=== PATIENT | female | born 1945 | race Native Hawaiian/Other Pacific Islander ===

== ENCOUNTER 2016-04-22 12:58 | Outpatient (CLI) | payer OTHER ==
[~2016-04-22 12:58] MED LIST: FURO40TA93 PO; GABA300C2 PO; HYDR10TA47A PO; HYSINGLA PO; LABETALOL200 MG OR; LORTAB 10-325 M1 TAB PO; MECL25TA84 PO; MECLIZINE25 M1 OR; PREDNISONE5 M1 OR; PRINIVIL10 MG OR; TOVIAZ4 MG OR; TRIA37.541 PO; XANAX2 MG OR
== END 2016-04-22 13:22 | disposition short-term general hospital (02) ==
LOC: AMB 12:58
DX: R10.84 Generalized abdominal pain (principal); R53.83 Other fatigue; T40.4X1A Poisoning by other synthetic narcotics, accidental (unintentional), initial encounter; Y92.092 Bedroom in other non-institutional residence as the place of occurrence of the external cause
CPT/HCPCS: A0425; A0427

== ENCOUNTER 2016-09-26 09:53 | Outpatient (CLI) | payer OTHER | END 2016-09-26 11:15 | disposition home or self-care (01) | LOC: MAMMO 09:53 | DX: Z12.31 Encounter for screening mammogram for malignant neoplasm of breast (principal) | CPT/HCPCS: G0202-TC ==

== ENCOUNTER 2016-12-23 09:14 | Emergency (ER) | payer OTHER ==
[~2016-12-23] VITALS: Ht 149.9 cm; Wt 86.2 kg
[2016-12-23 10:58] VITALS: BP 154/94; TEMP 98.8
== END 2016-12-23 11:00 | disposition home or self-care (01) ==
LOC: ED 09:14
DX: S63.592A Other specified sprain of left wrist, initial encounter (principal); W18.39XA Other fall on same level, initial encounter; Y92.89 Other specified places as the place of occurrence of the external cause
CPT/HCPCS: 99282

== ENCOUNTER 2017-01-09 15:45 | Emergency (ER) | payer OTHER ==
[~2017-01-09] VITALS: Ht 149.9 cm; Wt 81.6 kg
[2017-01-09 16:57] VITALS: BP 152/84; TEMP 98.7
== END 2017-01-09 16:59 | disposition home or self-care (01) ==
LOC: ED 15:45
DX: M25.561 Pain in right knee (principal)
CPT/HCPCS: 99283

== ENCOUNTER 2017-04-03 05:06 | Emergency (ER) | payer OTHER ==
[~2017-04-03] VITALS: Ht 121.9 cm; Wt 96.2 kg
[2017-04-03 07:09] VITALS: BP 133/86; TEMP 97.9
== END 2017-04-03 07:10 | disposition home or self-care (01) ==
LOC: ED 05:06
DX: M25.561 Pain in right knee (principal); M25.461 Effusion, right knee; Z98.890 Other specified postprocedural states
CPT/HCPCS: 36415; 85379; 99283

== ENCOUNTER 2017-04-05 12:02 | Outpatient (CLI) | payer OTHER | END 2017-04-05 19:39 | disposition home or self-care (01) | LOC: LAB 12:02 | DX: N95.1 Menopausal and female climacteric states (principal); Z79.899 Other long term (current) drug therapy | CPT/HCPCS: 36415; 84443 ==

== ENCOUNTER 2017-04-12 13:23 | Emergency (ER) | payer OTHER ==
[~2017-04-12] VITALS: Ht 149.9 cm; Wt 77.1 kg
[2017-04-12 14:06] VITALS: BP 144/76; TEMP 98.2
== END 2017-04-12 14:20 | disposition home or self-care (01) ==
LOC: ED 13:23
DX: R11.10 Vomiting, unspecified (principal); R10.13 Epigastric pain
CPT/HCPCS: 99281

== ENCOUNTER 2017-06-25 13:01 | Outpatient (CLI) | payer OTHER ==
[2017-06-25 13:57] LABS: PLATELET COUNT 312 K/uL (152-353)
[2017-06-25 14:04] LABS: POTASSIUM 4.3 mmol/L (3.6-5.2)
[2017-06-25 14:21] LABS: PARTIAL THROMBOPLASTIN TIME 26.5 SECONDS (24.5-33.6)
== END 2017-06-25 20:00 | disposition home or self-care (01) ==
LOC: RESP 13:01 → LABW 13:01
PROVIDERS: Anesthesiology
DX: I10 Essential (primary) hypertension (principal); I34.1 Nonrheumatic mitral (valve) prolapse; Z01.818 Encounter for other preprocedural examination; D46.Z Other myelodysplastic syndromes
CPT/HCPCS: 36415; 80048; 85027; 85610; 85730; 93005

== ENCOUNTER 2017-08-20 08:00 | Outpatient (CLI) | payer OTHER | END 2017-08-20 23:10 | disposition home or self-care (01) | LOC: NM 08:00 | DX: R22.41 Localized swelling, mass and lump, right lower limb (principal); M23.8X1 Other internal derangements of right knee | CPT/HCPCS: A9561 ==

== ENCOUNTER 2017-10-01 13:31 | Outpatient (CLI) | payer OTHER ==
[2017-10-01 13:56] LABS: PLATELET COUNT 306 K/uL (152-353)
[2017-10-01 14:05] LABS: POTASSIUM 5.2 mmol/L (3.6-5.2)
== END 2017-10-01 20:02 | disposition home or self-care (01) ==
LOC: LABW 13:31
PROVIDERS: Nurse Practitioner Family
DX: M06.4 Inflammatory polyarthropathy (principal); M86.8X6 Other osteomyelitis, lower leg; R53.83 Other fatigue
CPT/HCPCS: 36415; 80053; 83970; 85027; 87040; 87077; 87186; 87205

== ENCOUNTER 2017-10-04 13:07 | Outpatient (CLI) | payer OTHER | END 2017-10-04 19:40 | disposition home or self-care (01) | LOC: CT 13:07 | DX: M86.8X6 Other osteomyelitis, lower leg (principal) ==

== ENCOUNTER 2017-10-04 15:12 | Emergency (ER) | payer OTHER ==
[~2017-10-04] VITALS: Ht 149.9 cm; Wt 89.8 kg
[2017-10-04 15:30] VITALS: TEMP 98.6
[2017-10-04 17:15] LABS: PLATELET COUNT 275 K/uL (152-353)
[2017-10-04 17:22] LABS: POTASSIUM 4.3 mmol/L (3.6-5.2)
[2017-10-04 18:46] VITALS: BP 148/72
== END 2017-10-04 18:47 | disposition home or self-care (01) ==
LOC: ED 15:12
PROVIDERS: Emergency Medicine
DX: R78.81 Bacteremia (principal); B96.29 Other Escherichia coli [E. coli] as the cause of diseases classified elsewhere; M86.8X6 Other osteomyelitis, lower leg
CPT/HCPCS: 80048; 85027; 96365; 99283; J1580

== ENCOUNTER 2017-10-05 08:00 | Outpatient (CLI) | payer OTHER | END 2017-10-05 21:10 | disposition home or self-care (01) | LOC: INF 08:00 | DX: A41.51 Sepsis due to Escherichia coli [E. coli] (principal); T78.40XA Allergy, unspecified, initial encounter | CPT/HCPCS: 80170; 96365; 96366; J1580 ==

== ENCOUNTER 2017-10-06 09:00 | Outpatient (CLI) | payer OTHER | END 2017-10-06 21:30 | disposition home or self-care (01) | LOC: INF 09:00 | DX: A41.51 Sepsis due to Escherichia coli [E. coli] (principal); T78.40XA Allergy, unspecified, initial encounter | CPT/HCPCS: 96365; 96366 ==

== ENCOUNTER 2017-10-07 09:10 | Outpatient (CLI) | payer OTHER ==
[~2017-10-07] VITALS: Ht 149.9 cm; Wt 44.5 kg
== END 2017-10-07 19:13 | disposition home or self-care (01) ==
LOC: INF 09:10
DX: A41.51 Sepsis due to Escherichia coli [E. coli] (principal); T78.40XA Allergy, unspecified, initial encounter
CPT/HCPCS: 96365; J1335

== ENCOUNTER 2017-10-08 14:55 | Day surgery (SDC) | payer OTHER ==
[~2017-10-08] VITALS: Ht 149.9 cm; Wt 44.5 kg
[2017-10-08 09:45] VITALS: BP 101/53; TEMP 98.5
== END 2017-10-08 17:36 | disposition home or self-care (01) ==
LOC: OR 14:55
PROC: 05HQ33Z Insertion of Infusion Device into Left External Jugular Vein, Percutaneous Approach (ICD-10-PCS; principal; 2017-10-08)
DX: A41.51 Sepsis due to Escherichia coli [E. coli] (principal); E86.0 Dehydration; Z79.2 Long term (current) use of antibiotics
CPT/HCPCS: 36571; C1751; J1335; J1642

== ENCOUNTER 2017-10-09 09:56 | Outpatient (CLI) | payer OTHER | END 2017-10-09 19:27 | disposition home or self-care (01) | LOC: INF 09:56 | PROVIDERS: Internal Medicine | DX: A41.51 Sepsis due to Escherichia coli [E. coli] (principal) | CPT/HCPCS: 80053; 96365; 96375; J1335 ==

== ENCOUNTER 2017-10-10 07:42 | Outpatient (CLI) | payer OTHER ==
[~2017-10-10] VITALS: Ht 149.9 cm; Wt 89.8 kg
== END 2017-10-10 15:20 | disposition home or self-care (01) ==
LOC: INF 07:42
DX: A41.51 Sepsis due to Escherichia coli [E. coli] (principal)
CPT/HCPCS: 96365; 96375; J1335; J1642

== ENCOUNTER 2017-10-11 09:18 | Outpatient (CLI) | payer OTHER ==
[~2017-10-11] VITALS: Ht 149.9 cm; Wt 89.8 kg
== END 2017-10-11 22:41 | disposition home or self-care (01) ==
LOC: INF 09:18
DX: B96.20 Unspecified Escherichia coli [E. coli] as the cause of diseases classified elsewhere (principal); A41.9 Sepsis, unspecified organism; T78.49XA Other allergy, initial encounter
CPT/HCPCS: 96365; J1335; J1642

== ENCOUNTER 2017-10-12 10:22 | Emergency (ER) | payer OTHER ==
[~2017-10-12] VITALS: Ht 149.9 cm; Wt 89.8 kg
[2017-10-12 13:24] VITALS: BP 110/50; TEMP 98.3
== END 2017-10-12 13:25 | disposition home or self-care (01) ==
LOC: ED 10:22
DX: S00.83XA Contusion of other part of head, initial encounter (principal); R42 Dizziness and giddiness; W19.XXXA Unspecified fall, initial encounter; Y93.9 Activity, unspecified; Y92.091 Bathroom in other non-institutional residence as the place of occurrence of the external cause; B96.20 Unspecified Escherichia coli [E. coli] as the cause of diseases classified elsewhere; A41.51 Sepsis due to Escherichia coli [E. coli]
CPT/HCPCS: 96365; 99283; J1335; J1642

== ENCOUNTER 2017-10-12 12:25 | Outpatient (CLI) | payer OTHER | END 2017-10-12 19:35 | disposition home or self-care (01) | LOC: INF 12:25 | DX: B96.20 Unspecified Escherichia coli [E. coli] as the cause of diseases classified elsewhere (principal); A41.51 Sepsis due to Escherichia coli [E. coli] | CPT/HCPCS: 96365; J1335 ==

== ENCOUNTER 2017-10-13 10:08 | Outpatient (CLI) | payer OTHER | END 2017-10-13 19:13 | disposition home or self-care (01) | LOC: INF 10:08 | DX: B96.20 Unspecified Escherichia coli [E. coli] as the cause of diseases classified elsewhere (principal); A41.51 Sepsis due to Escherichia coli [E. coli] | CPT/HCPCS: 96365; J1335; J1642 ==

== ENCOUNTER 2017-10-14 08:52 | Outpatient (CLI) | payer OTHER ==
[~2017-10-14] VITALS: Ht 149.9 cm; Wt 89.8 kg
[2017-10-14 09:40] VITALS: BP 117/37; TEMP 98.7
[2017-10-14 11:12] LABS: POTASSIUM 4.5 mmol/L (3.6-5.2)
[2017-10-14 11:25] VITALS: BP 116/28; TEMP 98.4
== END 2017-10-14 20:38 | disposition home or self-care (01) ==
LOC: LAB 08:52 → INF 08:52
DX: B96.20 Unspecified Escherichia coli [E. coli] as the cause of diseases classified elsewhere (principal); A41.9 Sepsis, unspecified organism; M06.4 Inflammatory polyarthropathy; M86.8X6 Other osteomyelitis, lower leg
CPT/HCPCS: 36415; 80053; 96365; J1335

== ENCOUNTER 2017-10-15 09:53 | Outpatient (CLI) | payer OTHER ==
[~2017-10-15] VITALS: Ht 149.9 cm; Wt 89.8 kg
[2017-10-15 10:20] VITALS: BP 102/83; TEMP 98.6
[2017-10-15 10:52] VITALS: BP 119/51; TEMP 98.5
== END 2017-10-15 23:49 | disposition home or self-care (01) ==
LOC: LAB 09:53 → INF 09:53
DX: B96.20 Unspecified Escherichia coli [E. coli] as the cause of diseases classified elsewhere (principal); R30.0 Dysuria
CPT/HCPCS: 81000; 96365; J1335

== ENCOUNTER 2017-10-16 09:57 | Outpatient (CLI) | payer OTHER | END 2017-10-16 23:54 | disposition home or self-care (01) | LOC: INF 09:57 | DX: B96.20 Unspecified Escherichia coli [E. coli] as the cause of diseases classified elsewhere (principal) | CPT/HCPCS: 96365; J1335 ==

== ENCOUNTER 2017-10-17 09:13 | Outpatient (CLI) | payer OTHER ==
[~2017-10-17] VITALS: Ht 149.9 cm; Wt 89.8 kg
== END 2017-10-17 19:15 | disposition home or self-care (01) ==
LOC: INF 09:13
DX: B96.20 Unspecified Escherichia coli [E. coli] as the cause of diseases classified elsewhere (principal)
CPT/HCPCS: 96365; J1335

== ENCOUNTER 2017-10-18 08:06 | Outpatient (CLI) | payer OTHER | END 2017-10-18 19:21 | disposition home or self-care (01) | LOC: INF 08:06 | DX: B96.20 Unspecified Escherichia coli [E. coli] as the cause of diseases classified elsewhere (principal) | CPT/HCPCS: 96365; J1335 ==

== ENCOUNTER 2017-10-19 09:49 | Outpatient (CLI) | payer OTHER | END 2017-10-19 19:23 | disposition home or self-care (01) | LOC: INF 09:49 | DX: B96.20 Unspecified Escherichia coli [E. coli] as the cause of diseases classified elsewhere (principal) | CPT/HCPCS: 96365; J1335 ==

== ENCOUNTER 2017-10-20 09:43 | Outpatient (CLI) | payer OTHER | END 2017-10-20 20:10 | disposition home or self-care (01) | LOC: INF 09:43 | DX: B96.20 Unspecified Escherichia coli [E. coli] as the cause of diseases classified elsewhere (principal) | CPT/HCPCS: 96365; J1335 ==

== ENCOUNTER 2017-10-25 14:54 | Outpatient (CLI) | payer OTHER ==
[2017-10-25 15:30] LABS: PLATELET COUNT 310 K/uL (152-353)
[2017-10-25 15:37] LABS: POTASSIUM 4.2 mmol/L (3.6-5.2)
== END 2017-10-25 23:27 | disposition home or self-care (01) ==
LOC: LABW 14:54
PROVIDERS: Internal Medicine Infectious Disease
DX: M86.28 Subacute osteomyelitis, other site (principal)
CPT/HCPCS: 36415; 80053; 82550; 84550; 85027; 85651; 86361

== ENCOUNTER 2017-11-12 15:33 | Outpatient (CLI) | payer OTHER | END 2017-11-12 23:29 | disposition home or self-care (01) | LOC: LABW 15:33 | DX: K11.7 Disturbances of salivary secretion (principal); M86.8X6 Other osteomyelitis, lower leg; R30.0 Dysuria | CPT/HCPCS: 36415; 81000; 85651; 86140; 87040; 87077; 87086; 87088; 87185; 87186 ==

== ENCOUNTER 2017-12-03 12:58 | Outpatient (CLI) | payer OTHER | END 2017-12-03 22:45 | disposition home or self-care (01) | LOC: MAMMO 12:58 | DX: Z12.31 Encounter for screening mammogram for malignant neoplasm of breast (principal) ==

== ENCOUNTER 2017-12-31 09:10 | Outpatient (CLI) | payer OTHER ==
[~2017-12-31] VITALS: Ht 124.5 cm; Wt 95.0 kg
[2017-12-31 09:15] VITALS: BP 158/63; TEMP 98.5
[2017-12-31 12:10] VITALS: BP 178/47; TEMP 98.6
== END 2017-12-31 12:15 | disposition home or self-care (01) ==
LOC: INF 09:10
DX: T84.53XA Infection and inflammatory reaction due to internal right knee prosthesis, initial encounter (principal)
CPT/HCPCS: 96365; 96366; J3370

== ENCOUNTER 2018-01-01 09:52 | Outpatient (CLI) | payer OTHER ==
[~2018-01-01] VITALS: Ht 124.5 cm; Wt 94.8 kg
== END 2018-01-01 19:55 | disposition home or self-care (01) ==
LOC: INF 09:52
DX: T84.53XA Infection and inflammatory reaction due to internal right knee prosthesis, initial encounter (principal)
CPT/HCPCS: 96365; 96366; J3370

== ENCOUNTER 2018-01-02 08:51 | Outpatient (CLI) | payer OTHER ==
[~2018-01-02] VITALS: Ht 149.9 cm; Wt 94.8 kg
== END 2018-01-02 19:30 | disposition home or self-care (01) ==
LOC: INF 08:51
DX: T84.53XA Infection and inflammatory reaction due to internal right knee prosthesis, initial encounter (principal)
CPT/HCPCS: 96365; 96366; J1642; J3370

== ENCOUNTER 2018-01-03 08:13 | Outpatient (CLI) | payer OTHER ==
[~2018-01-03] VITALS: Ht 149.9 cm; Wt 94.8 kg
== END 2018-01-03 19:13 | disposition home or self-care (01) ==
LOC: INF 08:13
DX: T84.53XA Infection and inflammatory reaction due to internal right knee prosthesis, initial encounter (principal)
CPT/HCPCS: 96365; 96366; J1642; J3370

== ENCOUNTER 2018-01-04 09:34 | Outpatient (CLI) | payer OTHER | END 2018-01-04 19:59 | disposition home or self-care (01) | LOC: INF 09:34 | DX: T84.53XA Infection and inflammatory reaction due to internal right knee prosthesis, initial encounter (principal) | CPT/HCPCS: 96365; 96366; 96375 ==

== ENCOUNTER 2018-01-05 09:24 | Outpatient (CLI) | payer OTHER | END 2018-01-05 19:12 | disposition home or self-care (01) | LOC: INF 09:24 | DX: T84.53XA Infection and inflammatory reaction due to internal right knee prosthesis, initial encounter (principal); M86.28 Subacute osteomyelitis, other site | CPT/HCPCS: 96365; 96366; 96375 ==

== ENCOUNTER 2018-01-06 09:43 | Outpatient (CLI) | payer OTHER ==
[~2018-01-06] VITALS: Ht 149.9 cm; Wt 94.8 kg
[2018-01-06 10:34] LABS: POTASSIUM 3.6 mmol/L (3.6-5.2)
[2018-01-06 10:38] LABS: PLATELET COUNT 264 K/uL (152-353)
== END 2018-01-06 19:44 | disposition home or self-care (01) ==
LOC: INF 09:43
PROVIDERS: Internal Medicine Infectious Disease
DX: T84.53XA Infection and inflammatory reaction due to internal right knee prosthesis, initial encounter (principal); M86.28 Subacute osteomyelitis, other site
CPT/HCPCS: 80048; 80202; 85027; 86140; 96365; 96366; 96375; J1642; J3370

== ENCOUNTER 2018-01-07 09:41 | Outpatient (CLI) | payer OTHER ==
[~2018-01-07] VITALS: Ht 149.9 cm; Wt 94.8 kg
== END 2018-01-07 22:23 | disposition home or self-care (01) ==
LOC: INF 09:41
DX: M86.28 Subacute osteomyelitis, other site (principal)
CPT/HCPCS: 96365; 96366; J3370

== ENCOUNTER 2018-01-08 09:36 | Outpatient (CLI) | payer OTHER ==
[~2018-01-08] VITALS: Ht 149.9 cm; Wt 94.8 kg
== END 2018-01-08 19:35 | disposition home or self-care (01) ==
LOC: INF 09:36
DX: T84.53XA Infection and inflammatory reaction due to internal right knee prosthesis, initial encounter (principal); M86.28 Subacute osteomyelitis, other site
CPT/HCPCS: 96365; 96366; J1642; J3370

== ENCOUNTER 2018-01-09 09:33 | Outpatient (CLI) | payer OTHER | END 2018-01-09 19:09 | disposition home or self-care (01) | LOC: INF 09:33 | DX: T84.53XA Infection and inflammatory reaction due to internal right knee prosthesis, initial encounter (principal); M86.28 Subacute osteomyelitis, other site | CPT/HCPCS: 96365; 96366; J3370 ==

== ENCOUNTER 2018-01-10 09:06 | Outpatient (CLI) | payer OTHER | END 2018-01-10 19:08 | disposition home or self-care (01) | LOC: INF 09:06 | DX: T84.53XA Infection and inflammatory reaction due to internal right knee prosthesis, initial encounter (principal); M86.28 Subacute osteomyelitis, other site | CPT/HCPCS: 96365; J3370 ==

== ENCOUNTER 2018-01-11 08:49 | Outpatient (CLI) | payer OTHER ==
[~2018-01-11] VITALS: Ht 30.5 cm; Wt 0.5 kg
== END 2018-01-11 22:17 | disposition home or self-care (01) ==
LOC: INF 08:49
DX: T84.53XA Infection and inflammatory reaction due to internal right knee prosthesis, initial encounter (principal); M86.28 Subacute osteomyelitis, other site
CPT/HCPCS: 96365; J3370

== ENCOUNTER 2018-01-12 09:05 | Outpatient (CLI) | payer OTHER ==
[~2018-01-12] VITALS: Ht 30.5 cm; Wt 0.5 kg
== END 2018-01-12 21:31 | disposition home or self-care (01) ==
LOC: INF 09:05
DX: T84.53XA Infection and inflammatory reaction due to internal right knee prosthesis, initial encounter (principal); M86.28 Subacute osteomyelitis, other site
CPT/HCPCS: 96365; 96366; J3370

== ENCOUNTER 2018-01-13 08:54 | Outpatient (CLI) | payer OTHER ==
[~2018-01-13] VITALS: Ht 149.9 cm; Wt 94.8 kg
[2018-01-13 10:00] LABS: PLATELET COUNT 204 K/uL (152-353)
== END 2018-01-13 22:21 | disposition home or self-care (01) ==
LOC: INF 08:54
DX: T84.53XA Infection and inflammatory reaction due to internal right knee prosthesis, initial encounter (principal); M86.28 Subacute osteomyelitis, other site
CPT/HCPCS: 80048; 80202; 85027; 86140; 96365; 96366; J1642; J3370

== ENCOUNTER 2018-01-14 09:32 | Outpatient (CLI) | payer OTHER ==
[~2018-01-14] VITALS: Ht 149.9 cm; Wt 94.8 kg
== END 2018-01-14 21:03 | disposition home or self-care (01) ==
LOC: INF 09:32
DX: T84.53XA Infection and inflammatory reaction due to internal right knee prosthesis, initial encounter (principal); M86.28 Subacute osteomyelitis, other site
CPT/HCPCS: 96365; J1642; J3370

== ENCOUNTER 2018-01-15 08:50 | Outpatient (CLI) | payer OTHER ==
[~2018-01-15] VITALS: Ht 149.9 cm; Wt 94.8 kg
== END 2018-01-15 20:12 | disposition home or self-care (01) ==
LOC: INF 08:50
DX: M86.28 Subacute osteomyelitis, other site (principal)
CPT/HCPCS: 96365; J1642; J3370

== ENCOUNTER 2018-01-16 08:38 | Outpatient (CLI) | payer OTHER ==
[~2018-01-16] VITALS: Ht 149.9 cm; Wt 94.8 kg
== END 2018-01-16 19:21 | disposition home or self-care (01) ==
LOC: INF 08:38
DX: M86.28 Subacute osteomyelitis, other site (principal)
CPT/HCPCS: 96365; J1642; J3370

== ENCOUNTER 2018-01-17 08:57 | Outpatient (CLI) | payer OTHER ==
[~2018-01-17] VITALS: Ht 149.9 cm; Wt 94.8 kg
== END 2018-01-17 20:31 | disposition home or self-care (01) ==
LOC: INF 08:57
DX: T84.53XA Infection and inflammatory reaction due to internal right knee prosthesis, initial encounter (principal); M86.28 Subacute osteomyelitis, other site
CPT/HCPCS: 96365; J0878; J1642

== ENCOUNTER 2018-01-18 08:37 | Outpatient (CLI) | payer OTHER | END 2018-01-18 18:38 | disposition home or self-care (01) | LOC: INF 08:37 | DX: M86.28 Subacute osteomyelitis, other site (principal); T84.53XA Infection and inflammatory reaction due to internal right knee prosthesis, initial encounter | CPT/HCPCS: 96365; 96375; J1642 ==

== ENCOUNTER 2018-01-19 08:51 | Outpatient (CLI) | payer OTHER | END 2018-01-19 19:35 | disposition home or self-care (01) | LOC: INF 08:51 | DX: M86.28 Subacute osteomyelitis, other site (principal) | CPT/HCPCS: 96365; 96375 ==

== ENCOUNTER 2018-01-20 08:46 | Outpatient (CLI) | payer OTHER ==
[~2018-01-20] VITALS: Ht 149.9 cm; Wt 94.8 kg
[2018-01-20 10:06] LABS: POTASSIUM 4.2 mmol/L (3.6-5.2)
[2018-01-20 10:13] LABS: PLATELET COUNT 246 K/uL (152-353)
== END 2018-01-20 20:29 | disposition home or self-care (01) ==
LOC: INF 08:46
PROVIDERS: Internal Medicine Infectious Disease
DX: M86.28 Subacute osteomyelitis, other site (principal)
CPT/HCPCS: 80048; 82550; 85027; 86140; 96365; 96375; J0878; J1642

== ENCOUNTER 2018-01-21 08:25 | Outpatient (CLI) | payer OTHER ==
[~2018-01-21] VITALS: Ht 149.9 cm; Wt 94.8 kg
== END 2018-01-21 21:20 | disposition home or self-care (01) ==
LOC: INF 08:25
DX: M86.28 Subacute osteomyelitis, other site (principal)
CPT/HCPCS: 96365; 96375; J0878; J1642

== ENCOUNTER 2018-01-22 09:05 | Outpatient (CLI) | payer OTHER ==
[~2018-01-22] VITALS: Ht 149.9 cm; Wt 94.8 kg
== END 2018-01-22 21:13 | disposition home or self-care (01) ==
LOC: INF 09:05
DX: M86.28 Subacute osteomyelitis, other site (principal)
CPT/HCPCS: 96365; J0878

== ENCOUNTER 2018-01-23 08:46 | Outpatient (CLI) | payer OTHER ==
[~2018-01-23] VITALS: Ht 149.9 cm; Wt 94.8 kg
== END 2018-01-23 23:35 | disposition home or self-care (01) ==
LOC: INF 08:46
DX: M86.28 Subacute osteomyelitis, other site (principal)
CPT/HCPCS: 96365; J0878; J1642

== ENCOUNTER 2018-01-24 08:30 | Outpatient (CLI) | payer OTHER ==
[~2018-01-24] VITALS: Ht 149.9 cm; Wt 94.8 kg
== END 2018-01-24 09:35 | disposition home or self-care (01) ==
LOC: INF 08:30
DX: M86.28 Subacute osteomyelitis, other site (principal)
CPT/HCPCS: 96365; 96375; J0878; J1642

== ENCOUNTER 2018-01-25 08:31 | Outpatient (CLI) | payer OTHER | END 2018-01-25 21:29 | disposition home or self-care (01) | LOC: INF 08:31 | DX: M86.28 Subacute osteomyelitis, other site (principal) | CPT/HCPCS: 96365; 96375 ==

== ENCOUNTER 2018-01-26 07:56 | Outpatient (CLI) | payer OTHER | END 2018-01-26 21:41 | disposition home or self-care (01) | LOC: INF 07:56 | DX: M86.28 Subacute osteomyelitis, other site (principal) | CPT/HCPCS: 96365; 96375; J1642 ==

== ENCOUNTER 2018-01-27 08:25 | Outpatient (CLI) | payer OTHER ==
[~2018-01-27] VITALS: Ht 149.9 cm; Wt 94.8 kg
[2018-01-27 09:41] LABS: POTASSIUM 4.1 mmol/L (3.6-5.2)
[2018-01-27 09:43] LABS: PLATELET COUNT 253 K/uL (152-353)
== END 2018-01-27 22:46 | disposition home or self-care (01) ==
LOC: INF 08:25
PROVIDERS: Internal Medicine Infectious Disease
DX: M86.28 Subacute osteomyelitis, other site (principal)
CPT/HCPCS: 36591; 80048; 82550; 82553; 85027; 86140; 96365; 96375

== ENCOUNTER 2018-01-28 08:18 | Outpatient (CLI) | payer OTHER ==
[~2018-01-28] VITALS: Ht 149.9 cm; Wt 94.8 kg
== END 2018-01-28 22:08 | disposition home or self-care (01) ==
LOC: INF 08:18
DX: M86.28 Subacute osteomyelitis, other site (principal)
CPT/HCPCS: 96365; J1642

== ENCOUNTER 2018-02-19 10:58 | Outpatient (CLI) | payer OTHER ==
[2018-02-19 11:24] LABS: PLATELET COUNT 175 K/uL (152-353)
[2018-02-19 11:29] LABS: POTASSIUM 4.1 mmol/L (3.6-5.2)
== END 2018-02-19 21:35 | disposition home or self-care (01) ==
LOC: LABW 10:58
PROVIDERS: Internal Medicine Infectious Disease
DX: M86.28 Subacute osteomyelitis, other site (principal)
CPT/HCPCS: 36415; 80048; 85027; 86140

== ENCOUNTER 2018-03-18 15:10 | Outpatient (CLI) | payer OTHER ==
[2018-03-18 15:36] LABS: PLATELET COUNT 324 K/uL (152-353)
[2018-03-18 16:09] LABS: POTASSIUM 4.2 mmol/L (3.6-5.2)
== END 2018-03-18 20:51 | disposition home or self-care (01) ==
LOC: LABW 15:10
PROVIDERS: Internal Medicine Infectious Disease
DX: T84.53XD Infection and inflammatory reaction due to internal right knee prosthesis, subsequent encounter (principal)
CPT/HCPCS: 36415; 80048; 85027; 86140

== ENCOUNTER → 2018-03-25 11:59 | Outpatient (CLI) | payer OTHER | END | disposition home or self-care (01) | LOC: AMB 11:59 | DX: R68.89 Other general symptoms and signs (principal); R19.7 Diarrhea, unspecified ==

== ENCOUNTER 2018-04-09 12:12 | Outpatient (CLI) | payer OTHER ==
[2018-04-09 12:54] LABS: PLATELET COUNT 237 K/uL (152-353)
[2018-04-09 13:00] LABS: POTASSIUM 4.2 mmol/L (3.6-5.2)
== END 2018-04-09 20:09 | disposition home or self-care (01) ==
LOC: LABW 12:12
PROVIDERS: Internal Medicine Infectious Disease
DX: T84.53XD Infection and inflammatory reaction due to internal right knee prosthesis, subsequent encounter (principal)
CPT/HCPCS: 36415; 80048; 85027; 86140

== ENCOUNTER 2018-05-13 11:11 | Outpatient (CLI) | payer OTHER ==
[2018-05-13 11:29] LABS: PLATELET COUNT 303 K/uL (152-353)
[2018-05-13 11:48] LABS: POTASSIUM 4.1 mmol/L (3.6-5.2)
== END 2018-05-13 21:08 | disposition home or self-care (01) ==
LOC: LABW 11:11
PROVIDERS: Internal Medicine Infectious Disease
DX: T84.53XD Infection and inflammatory reaction due to internal right knee prosthesis, subsequent encounter (principal)
CPT/HCPCS: 36415; 80048; 85027; 86140

== ENCOUNTER → 2018-06-02 | Outpatient (CLI) | payer OTHER | LOC: RAD 10:20 | DX: M47.897 Other spondylosis, lumbosacral region (principal) ==

== ENCOUNTER 2018-06-03 12:51 | Outpatient (CLI) | payer OTHER | END 2018-06-03 22:49 | disposition home or self-care (01) | LOC: MRI 12:51 | DX: M47.897 Other spondylosis, lumbosacral region (principal) | CPT/HCPCS: A9576 ==

== ENCOUNTER 2018-07-31 15:17 | Outpatient (CLI) | payer OTHER ==
[2018-07-31 15:52] LABS: POTASSIUM 3.9 mmol/L (3.6-5.2)
[2018-07-31 15:59] LABS: PLATELET COUNT 252 K/uL (152-353)
== END 2018-07-31 19:46 | disposition home or self-care (01) ==
LOC: LABW 15:17
PROVIDERS: Pain Medicine Interventional Pain Medicine
DX: T84.53XD Infection and inflammatory reaction due to internal right knee prosthesis, subsequent encounter (principal); M47.897 Other spondylosis, lumbosacral region
CPT/HCPCS: 36415; 80048; 85027; 86140

== ENCOUNTER 2018-08-15 08:30 | Emergency (ER) | payer OTHER ==
[~2018-08-15] VITALS: Ht 149.9 cm; Wt 94.8 kg
[2018-08-15] MEDS ORDERED: CARV12.5 PO (08:44)
[2018-08-15] MEDS ORDERED: LIPITOR40 MG PO (08:44)
[2018-08-15] MEDS ORDERED: DONEPEZIL HYDRO10 M1 PO (08:45)
[2018-08-15] MEDS ORDERED: NUCYNTA ER100 MG PO (08:46)
[2018-08-15] MEDS ORDERED: MYRBETRIQ50 MG PO (08:46)
[2018-08-15] MEDS ORDERED: OMEPRAZOLE20 M1 PO (08:46)
[2018-08-15] MEDS ORDERED: POTASSIUM99 MG PO (08:47)
[2018-08-15] MEDS ORDERED: TYLENOL325 MG PO (08:47)
[2018-08-15] MEDS ORDERED: MORGIDOX 1X100100 MG PO (08:48)
[2018-08-15] MEDS ORDERED: FURO20TA67 PO (08:49)
[2018-08-15 09:40] VITALS: BP 127/69; TEMP 97.3
== END 2018-08-15 09:40 | disposition home or self-care (01) ==
LOC: ED 08:30
DX: M10.9 Gout, unspecified (principal)
CPT/HCPCS: 99283

== ENCOUNTER 2018-08-20 09:23 | Day surgery (SDC) | payer OTHER ==
[~2018-08-20] VITALS: Ht 149.9 cm; Wt 88.0 kg
[~2018-08-20 09:23] MED LIST changes: +CARV12.5 PO; +DONEPEZIL HYDRO10 M1 PO; +FURO20TA67 PO; +LIPITOR40 MG PO; +MORGIDOX 1X100100 MG PO; +MYRBETRIQ50 MG PO; +NUCYNTA ER100 MG PO; +OMEPRAZOLE20 M1 PO; +POTASSIUM99 MG PO; +TYLENOL325 MG PO
== END 2018-08-20 10:27 | disposition home or self-care (01) ==
LOC: OR 09:23
PROC: 3E0T3BZ Introduction of Anesthetic Agent into Peripheral Nerves and Plexi, Percutaneous Approach (ICD-10-PCS; principal; 2018-08-20)
PROC: 3E0T33Z Introduction of Anti-inflammatory into Peripheral Nerves and Plexi, Percutaneous Approach (ICD-10-PCS; 2018-08-20)
PROC: BR16YZZ Fluoroscopy of Lumbar Facet Joint(s) using Other Contrast (ICD-10-PCS; 2018-08-20)
DX: M47.816 Spondylosis without myelopathy or radiculopathy, lumbar region (principal)
CPT/HCPCS: J1100; J2001

== ENCOUNTER 2018-09-02 08:37 | Day surgery (SDC) | payer OTHER ==
[~2018-09-02] VITALS: Ht 30.5 cm; Wt 0.5 kg
== END 2018-09-02 10:10 | disposition home or self-care (01) ==
LOC: OR 08:37
PROC: 3E0T3BZ Introduction of Anesthetic Agent into Peripheral Nerves and Plexi, Percutaneous Approach (ICD-10-PCS; principal; 2018-09-02)
PROC: 3E0T33Z Introduction of Anti-inflammatory into Peripheral Nerves and Plexi, Percutaneous Approach (ICD-10-PCS; 2018-09-02)
PROC: BR16YZZ Fluoroscopy of Lumbar Facet Joint(s) using Other Contrast (ICD-10-PCS; 2018-09-02)
DX: M47.816 Spondylosis without myelopathy or radiculopathy, lumbar region (principal)
CPT/HCPCS: J1100; J2001

== ENCOUNTER 2018-12-05 10:15 | Outpatient (CLI) | payer OTHER | END 2018-12-05 21:28 | disposition home or self-care (01) | LOC: MAMMO 10:15 | DX: Z12.31 Encounter for screening mammogram for malignant neoplasm of breast (principal) ==

== ENCOUNTER 2019-01-24 20:07 | Outpatient (CLI) | payer OTHER | END 2019-01-24 20:17 | disposition short-term general hospital (02) | LOC: AMB 20:07 | DX: R41.82 Altered mental status, unspecified (principal); R11.2 Nausea with vomiting, unspecified | CPT/HCPCS: A0425; A0427 ==

== ENCOUNTER 2019-01-24 20:44 | Emergency (ER) | payer OTHER ==
[~2019-01-24] VITALS: Ht 149.9 cm; Wt 82.6 kg
[2019-01-24 21:04] LABS: PLATELET COUNT 297 K/uL (152-353)
[2019-01-24 21:13] LABS: POTASSIUM 4.8 mmol/L (3.6-5.2); SODIUM 141 mmol/L (136-145)
[2019-01-24 23:01] VITALS: BP 134/96; TEMP 97.6
== END 2019-01-24 23:01 | disposition home or self-care (01) ==
LOC: ED 20:44
PROVIDERS: Family Medicine
DX: N39.0 Urinary tract infection, site not specified (principal); K59.09 Other constipation
CPT/HCPCS: 80053; 80307; 81000; 82150; 82550; 83690; 84484; 85027; 87086; 87088; 87502; 93005; 96360; 96365; 96375; 99284; J2405